=== PATIENT | female | born 1970 | race Caucasian/White ===

== ENCOUNTER → 2017-05-30 | Outpatient (CLI) | payer OTHER | LOC: MC.RAD 13:52 | DX: Z12.31 Encounter for screening mammogram for malignant neoplasm of breast (principal) ==

== ENCOUNTER → 2019-08-23 | Outpatient (CLI) | payer OTHER | LOC: MC.RAD 12:47 | DX: Z12.31 Encounter for screening mammogram for malignant neoplasm of breast (principal) ==

== ENCOUNTER → 2023-09-05 | Outpatient (CLI) | payer BC ==
[2023-09-05 09:02] LABS: CALCIUM 9.4 mg/dL (8.4-10.2); CREATININE, serum 1.05 mg/dL (0.57-1.11); POTASSIUM 4.5 mmol/L (3.5-4.5)
== END ==
LOC: COL.RAD 07:24
PROVIDERS: Surgery
DX: C20 Malignant neoplasm of rectum (principal)
CPT/HCPCS: Q9967

== ENCOUNTER → 2023-09-15 | Outpatient (CLI) | payer BC | LOC: MC.RAD 16:46 | DX: Z12.31 Encounter for screening mammogram for malignant neoplasm of breast (principal) ==

== ENCOUNTER 2023-09-28 11:43 | Day surgery (SDC) | payer BC ==
[~2023-09-28] VITALS: Ht 165.1 cm; Wt 66.3 kg
[~2023-09-28 11:43] MED LIST: HYDROmorphone 2 MG/1 ML VIAL IV PRN; LR 1,000 ML IV SCH; Ondansetron 4 MG/2 ML VIAL IV PRN; droPERidol 2.5 MG/ML 2 ML VIAL IV PRN; fentaNYL 50 MCG/ML 2 ML VIAL IV PRN; hydrALAZINE 20 MG/ML 1 ML VIAL IV PRN
[2023-09-28] MEDS ORDERED: NS 10 ML IV ONE (12:10)
[2023-09-28] MEDS ORDERED: fentaNYL 50 MCG/ML 2 ML VIAL ONE (12:12)
[2023-09-28 13:17] VITALS: BP 104/73; PULSE 52; TEMP 97.7
[2023-09-28] MEDS ORDERED: ePHEDrine 50 MG/ML VIAL ONE (13:29)
[2023-09-28] MEDS ORDERED: Topical Skin Adhesive 1 EACH (1 ML) TOP ONE (13:31)
[2023-09-28 14:00] VITALS: BP 101/58; PULSE 58; TEMP 97.6
[2023-09-28] MEDS ORDERED: Ondansetron 4 MG/2 ML VIAL IV PRN (14:00)
[2023-09-28] MEDS ORDERED: Ibuprofen 600 MG TAB PO PRN (14:00)
[2023-09-28] MEDS ORDERED: NORCO 325 MG-51 TAB PO (14:00)
[2023-09-28] MEDS ORDERED: Acetaminophen 325 MG TAB PO PRN (14:00)
[2023-09-28 14:15] VITALS: BP 106/67; PULSE 58
[2023-09-28 14:27] LABS: HEMATOCRIT 38.7 % (37.0-47.0); HEMOGLOBIN 13.6 g/dl (12.5-16.0); MEAN CELL VOLUME 91 fl (80.0-100.0); MEAN CORPUSCULAR HEMOGLOBIN 32 pg (27-31); MEAN CORPUSCULAR HGB CONC 35 g/dl (33.0-37.0); MEAN PLATELET VOLUME 9.8 fl (7.4-10.4); PLATELET COUNT 180 K/mm3 (130-400); RED BLOOD COUNT 4.27 M/mm3 (4.10-5.30); REDCELL DISTRIBUTION WIDTH-CV 12.3 % (11.5-14.5)
[2023-09-28 14:30] VITALS: BP 106/61; PULSE 60
[2023-09-28 14:42] LABS: BILIRUBIN,TOTAL 0.5 mg/dL (0.2-1.2); CALCIUM 9.8 mg/dL (8.4-10.2); CREATININE, serum 1.06 mg/dL (0.57-1.11); TOTAL PROTEIN 6.5 gm/dL (6.2-8.1)
[2023-09-28 15:03] LABS: ANISOCYTOSIS 1+; BAND 2 % (0-10); EOSINOPHIL 1 % (0-4); HYPOCHROMIA 1+; LYMPHOCYTE 44 % (20.0-51.0); NEUTROPHILS 45 % (42.0-75.2); PLATELET ESTIMATE NORMAL (NORMAL)
--- NOTE | 2023-09-28 19:03 | NUR ---
[id number]: PT TO RECOVERY BAY 8 FROM OR S/P PORTACATH PLACEMENT L&O, PLACED ON MONITOR, VSS ON RA RECEIVED REPORT AND ASSUMED CARE OF PT FROM ED [facility] AND [facility] (2 INCISION SITES CLOSED WITH GLUE) CDI; DENIES SIGNIFICANT COMPLAINT SPOUSE AT BEDSIDE PROVIDED FOOD/FLUIDS, TOLERATING WELL ONCOLOGIST HAD ORDERED LABS FOR TUESDAY - LAB CALLED FOR BLOOD DRAW, AND IS AT BEDSIDE AT 1413 FOR SAME. AVAILABLE RESULTS PRINTED AND HANDED TO PT. PT A&O, NAD, VSS ON RA, TOLERATING PO, IS WITHOUT COMPLAINT, WITH STEADY GAIT BY END OF SDC STAY IV D/C'D. D/C INSTRUCTIONS, FOLLOW UP REVIEWED AND HANDED TO PT. ALL QUESTIONS AND CONCERNS ADDRESSED TO PT SATISFACTION. TAKEN TO EXIT VIA W/C WITH ALL BELONGINGS AND PAPERWORK IN HAND, ASSISTED INTO PASSENGER SEAT OF POV. FAMILY TO DRIVE HOME.
== END 2023-09-28 14:50 | disposition home or self-care (01) ==
LOC: SDCO 11:43
PROVIDERS: Internal Medicine
DX: C20 Malignant neoplasm of rectum (principal)
CPT/HCPCS: C1788; J0690; J1644; J2704; J3010; J7120